=== PATIENT | male | born 1990 | race Hispanic/Latino ===

== ENCOUNTER 2017-12-13 23:01 | Emergency (ER) | payer MEDICAID ==
[2017-12-13] MEDS ORDERED: Cephalexin 500 MG Cap PO ONE (23:38)
--- NOTE | 2017-12-13 23:39 | EDM.PDOC ---
ED HPI GENERAL MEDICAL PROBLEM - General Chief Complaint: Skin Complaint Stated Complaint: BALL/KNOT ON NECK Time Seen by Provider: 12/13/17 23:23 Source of Information: Reports: Patient History Limitations: Reports: No Limitations - History of Present Illness INITIAL COMMENTS - FREE TEXT/NARRATIVE: The patient presents with a lump to the back of the head at the base of the skull on the right side. He noticed this about 3 days ago. There is no drainage and he has no fever or chills. He has no other complaints. Onset: Gradual Duration: Day(s): (3) Location: Reports: Head Quality: Reports: Sharp Severity: Mild Improves with: Reports: None Worsens with: Reports: None Associated Symptoms: Reports: No Other Symptoms Right Neck Pain Score (Numeric/FACES): 1 - Related Data Allergies Allergy/AdvReac Type Severity Reaction Status Date / Time No Known Allergies Allergy Verified 12/13/17 23:12 Home Meds: Home Meds cephALEXin [Keflex] 500 mg PO Q8H #21 cap 12/13/17 [Rx] Past Medical History - Past Health History Medical/Surgical History: Denies Medical/Surgical History - Past Surgical History HEENT Surgical History: Reports: Eye Surgery Social & Family History - Family History Family Medical History: Noncontributory - Tobacco Use Smoking Status *Q: Never Smoker - Recreational Drug Use Recreational Drug Use: No ED ROS GENERAL - Review of Systems Review Of Systems: See Below Constitutional: Reports: No Symptoms HEENT: Reports: Other (lump to the back of his head) Respiratory: Reports: No Symptoms Cardiovascular: Reports: No Symptoms Endocrine: Reports: No Symptoms GI/Abdominal: Reports: No Symptoms : Reports: No Symptoms ED EXAM, SKIN/RASH Exam: See Below Exam Limited By: No Limitations General Appearance: Alert, No Apparent Distress Ears: Normal External Exam Nose: Normal Inspection Head: Atraumatic, Normocephalic Neck: Other (erythema and edema to the base of the skull on the right side with mild pain upon palpation) Respiratory/Chest: No Respiratory Distress, Lungs Clear, Normal Breath Sounds Cardiovascular: Regular Rate, Rhythm, No Edema, No Murmur GI/Abdominal: Soft, Non-Tender, No Organomegaly, No Mass Course - Vital Signs Last Recorded V/S: Last Vital Signs Temp 99.5 F 12/13/17 23:10 Pulse 93 12/13/17 23:10 Resp 17 12/13/17 23:10 BP 146/92 H 12/13/17 23:10 Pulse Ox 99 12/13/17 23:10 Departure - Departure Time of Disposition: 23:40 Disposition: Home, Self-Care 01 Condition: Good Clinical Impression: Abscess - Discharge Information *PRESCRIPTION DRUG MONITORING PROGRAM REVIEWED*: No *COPY OF PRESCRIPTION DRUG MONITORING REPORT IN PATIENT DEVYN: No Prescriptions: cephALEXin [Keflex] 500 mg PO Q8H #21 cap Instructions: Skin Abscess Referrals: PCP,None [Primary Care Provider] - Reema Sotelo PA [Physician [employer]] - 1 Week Additional Instructions: Take the keflex 3 times per day for 1 week. Put warm compresses on the area 2 times per day for 5 days. Take tylenol or motrin for pain. Please return if you are worse.
== END 2017-12-13 23:58 | disposition home or self-care (01) ==
LOC: EDBD 23:01 → JD.ED 23:01
DX: L02.811 Cutaneous abscess of head [any part, except face] (principal)
CPT/HCPCS: 99283; A9270

== ENCOUNTER 2017-12-24 10:26 | Emergency (ER) | payer MEDICAID ==
--- NOTE | 2017-12-24 12:15 | EDM.PDOC ---
ED HPI GENERAL MEDICAL PROBLEM - General Chief Complaint: Skin Complaint Stated Complaint: ABSCESS ON NECK NOT BETTER Time Seen by Provider: 12/24/17 11:15 Source of Information: Reports: Patient History Limitations: Reports: No Limitations - History of Present Illness INITIAL COMMENTS - FREE TEXT/NARRATIVE: Patient was recently evaluated in ED with concerns of having an abscess posterior aspect of his neck along the hairline. He was placed on Keflex. Since then the area has grown firmer to touch. No fluctuance. No redness. No Drainage present. Patient states the swelling appears to have improved. He has completed the course of antibiotic. Denies any fever, chills, worsening pain, or any additional complaints. - Related Data Allergies Allergy/AdvReac Type Severity Reaction Status Date / Time No Known Allergies Allergy Verified 12/24/17 10:36 Home Meds: Home Meds Doxycycline [Vibramycin] 100 mg PO BID #14 cap 12/24/17 [Rx] Past Medical History - Past Health History Medical/Surgical History: Denies Medical/Surgical History - Past Surgical History HEENT Surgical History: Reports: Eye Surgery Social & Family History - Family History Family Medical History: Noncontributory - Tobacco Use Smoking Status *Q: Never Smoker - Caffeine Use Caffeine Use: Reports: Coffee - Recreational Drug Use Recreational Drug Use: No ED ROS GENERAL - Review of Systems Review Of Systems: ROS reveals no pertinent complaints other than HPI. ED EXAM, SKIN/RASH Exam: See Below Exam Limited By: No Limitations General Appearance: Alert, WD/WN, No Apparent Distress Ears: Hearing Grossly Normal Nose: Normal Inspection Throat/Mouth: Normal Voice, No Airway Compromise Head: Atraumatic, Normocephalic Neck: Normal Inspection, Supple, Non-Tender, Full Range of Motion. No: Lymphadenopathy (L), Lymphadenopathy (R) Respiratory/Chest: No Respiratory Distress, Lungs Clear, Normal Breath Sounds, No Accessory Muscle Use, Chest Non-Tender Cardiovascular: Normal Peripheral Pulses, Regular Rate, Rhythm, No Murmur Peripheral Pulses: 2+: Radial (R) Neurological: Alert, Oriented, CN II-XII Intact, Normal Cognition, No Motor/ Sensory Deficits Psychiatric: Normal Affect, Normal Mood Skin: Warm, Dry, Intact, Normal Color, No Rash Location, Skin: Other (At the base of the occiput but there appears to be a few old comedones. With palpation there is a proximally 1 cm x 2 cm firm swollen area. Suspect this is more likely a lymph node versus abscess. Otherwise there is no fluctuance noted. No redness. No drainage present. No treatment required at this point.) Associated features: Tenderness (Mild). No: Warmth, Induration, Scaling, Inflammation, Crusting, Weeping Course - Vital Signs Last Recorded V/S: Last Vital Signs Temp 98.4 F 12/24/17 10:34 Pulse 75 12/24/17 10:34 Resp 18 12/24/17 10:34 BP 155/80 H 12/24/17 10:34 Pulse Ox 97 12/24/17 10:34 - Re-Assessments/Exams Free Text/Narrative Re-Assessment/Exam: Suspect cause of area of swelling is more likely a lymph node that is inflamed with comedones to the specific area that have resolved. He was on Keflex and expressed improvements. I will send him home on a short course of doxycycline. He will follow up with PCP to ensure resolution this coming week. Departure - Departure Time of Disposition: 12:12 Disposition: Home, Self-Care 01 Condition: Good Clinical Impression: Swollen lymph nodes, Abscess - Discharge Information Prescriptions: Doxycycline [Vibramycin] 100 mg PO BID #14 cap Instructions: Lymphadenopathy Referrals: PCP,None [Primary Care Provider] - Forms: ED Department Discharge Additional Instructions: He had no significant improvement with the Keflex. On examination the area is firm to touch with no fluctuance. Suspect this is more likely on the fluid that is swollen. He did have some localized acne that may have contributed with the swollen lymph node. I will place her on doxycycline 1 tablet twice a day for 7 days. Continue utilizing Tylenol and ibuprofen as needed for pain. Apply warm compresses to the affected area 3 times a day, 30 minutes in duration. Follow- up with a PCP this coming week for reevaluation. Return to the ED if you develop any new or worsening symptoms
== END 2017-12-24 12:29 | disposition home or self-care (01) ==
LOC: JD.ED 10:26
DX: L04.0 Acute lymphadenitis of face, head and neck (principal)
CPT/HCPCS: 99282; 99283